=== PATIENT | male | born 1995 | race Caucasian/White ===

== ENCOUNTER → 2019-06-07 | Emergency (ER) | payer MEDICAID ==
[~2019-06-07] VITALS: Ht 188 cm; Wt 90.7 kg
[~2019-06-07] MED LIST: Acetaminophen 500mg (ES) tab ORAL ONE; Dicyclomine HCl 10mg/5ml oral soln ORAL ONE; Ketorolac 30mg Inj IV ONE; Mylanta II UD 30ml ORAL ONE; ZOFRAN4 MG ORAL
[2019-06-07 20:35] VITALS: BP 120/72
--- NOTE | 2019-06-07 20:35 | NUR ---
ED Nurse Note: Pt walked into ED c/o mid-lower abdominal pain, nausea, vomting and diarrhea since this morning. Stated that he vomited 7 times. Denies fever/ chills. Not in any distress. No episodes of vomiting at this time. S/O at bedside.
--- NOTE | 2019-06-07 20:37 | NUR ---
ED Nurse Note: ERMD at bedside.
--- NOTE | 2019-06-07 20:41 | NUR ---
ED Nurse Note: IV line established. Blood and urine specimen collected and sent to lab.
--- NOTE | 2019-06-07 20:43 | Emergency Room Report ---
History of Present Illness General Chief Complaint: Abdominal Pain Source: Patient Present Illness HPI 24-year-old male, no past medical history no surgical history presents with abdominal cramps, acute nausea and vomiting up to 7 episodes no blood, also accompanied by diarrhea no aggravating leaving factors of the abdominal cramps severity is mild, intermittent no fevers no chills no chest pain or shortness of breath patient presents for evaluation Allergies: Coded Allergies: No Known Allergies (Unverified , 06/07/19) Patient History Past Medical History: see triage record Reviewed Nursing Documentation: PMH: Agreed; PSxH: Agreed Nursing Documentation-PMH Past Medical History: No Stated History Review of Systems All Other Systems: negative except mentioned in HPI Physical Exam Vital Signs Date Time Temp Pulse Resp B/P (MAP) Pulse Ox O2 Delivery O2 Flow Rate FiO2 06/07/19 20:25 97.9 103 18 120/72 (88) 99 Room Air Sp02 EP Interpretation: reviewed, normal General Appearance: well appearing, no apparent distress, alert Head: normocephalic, atraumatic Eyes: bilateral eye PERRL, bilateral eye EOMI ENT: uvula midline, dry mucus membranes Neck: supple, thyroid normal, supple/symm/no masses Respiratory: lungs clear, no respiratory distress, no retraction, no accessory muscle use Cardiovascular #1: normal peripheral pulses, no edema, no gallop, no murmur, tachycardia Gastrointestinal: non tender, soft, no guarding, no rebound Musculoskeletal: normal inspection Neurologic: alert, oriented x3 Psychiatric: mood/affect normal Skin: no rash, warm/dry Medical Decision Making Diagnostic Impression: Primary Impression: Viral gastroenteritis Additional Impression: Abdominal pain Qualified Codes: R10.84 - Generalized abdominal pain ER Course 24-year-old male presents with acute nausea vomiting and diarrhea differential diagnosis includes viral versus gastroenteritis, appendicitis, diverticulitis, abdomen is soft nontender no rebound no guarding Patient given 2 L of NS Reevaluation at 10:27 PM, abdomen soft nontender no rebound no guarding Patient with an incidental white count of 18, spoke with patient decision- making was made not to pursue CT scan given the fact that he may be early in his disease course and if he is to worsen to return to the ED strict return precautions for appendicitis were given Disposition home with return precautions tachycardia resolved, follow-up with PCP Laboratory Tests Test 06/07/19 20:49 White Blood Count 18.3 K/UL (4.8-10.8) H Red Blood Count 5.17 M/UL (4.70-6.10) Hemoglobin 16.6 G/DL (14.2-18.0) Hematocrit 50.3 % (42.0-52.0) Mean Corpuscular Volume 97 FL (80-99) Mean Corpuscular Hemoglobin 32.1 PG (27.0-31.0) H Mean Corpuscular Hemoglobin Concent 33.0 G/DL (32.0-36.0) Red Cell Distribution Width 11.3 % (11.6-14.8) L Platelet Count 354 K/UL (150-450) Mean Platelet Volume 6.5 FL (6.5-10.1) Neutrophils (%) (Auto) % (45.0-75.0) Lymphocytes (%) (Auto) % (20.0-45.0) Monocytes (%) (Auto) % (1.0-10.0) Eosinophils (%) (Auto) % (0.0-3.0) Basophils (%) (Auto) % (0.0-2.0) Differential Total Cells Counted 100 Neutrophils % (Manual) 87 % (45-75) H Lymphocytes % (Manual) 5 % (20-45) L Monocytes % (Manual) 4 % (1-10) Band Neutrophils 4 % (0-8) Platelet Estimate Pending Platelet Morphology Pending Urine Color Yellow Urine Appearance Clear Urine pH 5 (4.5-8.0) Urine Specific [place] 1.010 (1.005-1.035) Urine Protein Negative (NEGATIVE) Urine Glucose (UA) Negative (NEGATIVE) Urine Ketones 3+ (NEGATIVE) H Urine Blood 3+ (NEGATIVE) H Urine Nitrite Negative (NEGATIVE) Urine Bilirubin Negative (NEGATIVE) Urine Urobilinogen Normal MG/DL (0.0-1.0) Urine Leukocyte Esterase 1+ (NEGATIVE) H Urine RBC 2-4 /HPF (0 - 0) H Urine WBC 0-2 /HPF (0 - 0) Urine Squamous Epithelial Cells None /LPF (NONE/OCC) Urine Bacteria Occasional /HPF (NONE) Sodium Level 140 MMOL/L (136-145) Potassium Level 3.9 MMOL/L (3.5-5.1) Chloride Level 103 MMOL/L (98-107) Carbon Dioxide Level 24 MMOL/L (21-32) Anion Gap 13 mmol/L (5-15) Blood Urea Nitrogen 20 mg/dL (7-18) H Creatinine 1.2 MG/DL (0.55-1.30) Estimate Glomerular Filtration Rate > 60 mL/min (>60) Glucose Level 112 MG/DL (74-106) H Calcium Level 9.1 MG/DL (8.5-10.1) Total Bilirubin 1.1 MG/DL (0.2-1.0) H Direct Bilirubin 0.2 MG/DL (0.0-0.3) Aspartate Amino Transferase (AST) 20 U/L (15-37) Alanine Aminotransferase (ALT) 25 U/L (12-78) Alkaline Phosphatase 70 U/L (46-116) Total Protein 8.2 G/DL (6.4-8.2) Albumin 4.7 G/DL (3.4-5.0) Globulin 3.5 g/dL Albumin/Globulin Ratio 1.3 (1.0-2.7) Lipase 112 U/L (73-393) Rhythm Strip Diag. Results Rhythm Strip Time: 22:27 EP Interpretation: yes Rate: 99 Rhythm: NSR, no PVC's, no ectopy Last Vital Signs Date Time Temp Pulse Resp B/P (MAP) Pulse Ox O2 Delivery O2 Flow Rate FiO2 06/07/19 20:25 97.9 103 18 120/72 (88) 99 Room Air Disposition: HOME, SELF-CARE Condition: Stable Scripts Ondansetron (Zofran) 4 Mg Tablet 4 MG ORAL Q8H PRN for Nausea & Vomiting, #10 TAB 0 Refills Prov: Nick Gardner MD 06/07/19 Referrals: [facility] Patient Instructions: Viral Gastroenteritis, Adult, Abdominal Pain, Adult Additional Instructions: The patient was provided with discharge instructions, notified to follow-up with a primary care doctor and or specialist in the next 24-48 hours, and to return to the ED if they have worsening of their symptoms. Please note that this report is being documented using DRAGON technology. This can lead to erroneous entry secondary to incorrect interpretation by the dictating instrument. Nick Gardner MD Jun 07, 2019 20:43
[2019-06-07 21:17] LABS: ANION GAP 13 mmol/L (5-15); BLOOD UREA NITROGEN 20 mg/dL (7-18); CALCIUM 9.1 MG/DL (8.5-10.1); CARBON DIOXIDE 24 MMOL/L (21-32); CHLORIDE 103 MMOL/L (98-107); CREATININE 1.2 MG/DL (0.55-1.30); POTASSIUM 3.9 MMOL/L (3.5-5.1); SODIUM 140 MMOL/L (136-145)
[2019-06-07 21:19] LABS: APPEARANCE,URINE CLEAR; BILIRUBIN, URINE NEGATIVE (NEGATIVE); GLUCOSE, URINE (UA) NEGATIVE (NEGATIVE); HEMATOCRIT 50.3 % (42.0-52.0); HEMOGLOBIN 16.6 G/DL (14.2-18.0); KETONES,URINE 3+ (NEGATIVE); LEUKOCYTE ESTERASE ,URINE 1+ (NEGATIVE); MEAN CORPUSCULAR VOLUME 97 FL (80-99); NITRITE,URINE NEGATIVE (NEGATIVE); PH,URINE 5 (4.5-8.0); PLATELET COUNT 354 K/UL (150-450); PROTEIN,URINE NEGATIVE (NEGATIVE); RED BLOOD COUNT 5.17 M/UL (4.70-6.10); RED CELL DISTRIBUTION WIDTH 11.3 % (11.6-14.8); UROBILINOGEN,URINE NORMAL MG/DL (0.0-1.0); WHITE BLOOD COUNT 18.3 K/UL (4.8-10.8)
[2019-06-07 21:24] LABS: COLOR,URINE YELLOW
[2019-06-07 21:27] LABS: ALANINE AMINOTRANSFERASE 25 U/L (12-78); ALBUMIN 4.7 G/DL (3.4-5.0); ALBUMIN/GLOBULIN RATIO 1.3 (1.0-2.7); ALKALINE PHOSPHATASE 70 U/L (46-116); ASPARTATE AMINO TRANSFERASE 20 U/L (15-37); BILIRUBIN,TOTAL 1.1 MG/DL (0.2-1.0)
[2019-06-07 21:29] LABS: BILIRUBIN,DIRECT 0.2 MG/DL (0.0-0.3)
[2019-06-07 22:38] VITALS: BP 114/71
--- NOTE | 2019-06-07 22:38 | NUR ---
ED Nurse Note: Pt cleared by ERMD for discharge. DC instructions/prescription was given and explained to pt and verbalized understanding of teachings. All medical deviecs such as ID band and IV line removed. Pt is AAO x4, ambulatory and left with all personal belongings. Accompanied by his S/O.
== END | disposition home or self-care (01) ==
LOC: EMR 23:49
DX: A08.4 Viral intestinal infection, unspecified (principal); R10.84 Generalized abdominal pain
CPT/HCPCS: 36415; 80053; 81003; 82248; 83690; 85007; 85025; 96361; 96374; 96375; J1885; J2405; J7030; Z7502; 99284